=== PATIENT | male | born 1955 | race Caucasian/White ===

== ENCOUNTER 2022-08-13 11:38 | Outpatient (CLI) | payer MEDICARE | END 2022-08-13 11:39 | disposition home or self-care (01) | LOC: CSHWCC 11:38 | PROVIDERS: ATTEND Nurse Practitioner Family | DX: T81.89XD Other complications of procedures, not elsewhere classified, subsequent encounter (principal); R60.0 Localized edema | CPT/HCPCS: 17250; 29581 ==

== ENCOUNTER 2022-08-27 15:30 | Outpatient (CLI) | payer MEDICARE | END 2022-08-27 15:31 | disposition home or self-care (01) | LOC: CSHWCC 15:30 | PROVIDERS: ATTEND Nurse Practitioner Family | DX: T81.89XD Other complications of procedures, not elsewhere classified, subsequent encounter (principal); R60.0 Localized edema | CPT/HCPCS: 29581; 99213; G0463 ==

== ENCOUNTER 2022-09-10 15:13 | Outpatient (CLI) | payer MEDICARE | END 2022-09-10 15:14 | disposition home or self-care (01) | LOC: CSHWCC 15:13 | PROVIDERS: ATTEND Nurse Practitioner Family | DX: T81.89XD Other complications of procedures, not elsewhere classified, subsequent encounter (principal); R60.0 Localized edema | CPT/HCPCS: 17250; 29581 ==

== ENCOUNTER 2022-09-24 14:34 | Outpatient (CLI) | payer MEDICARE | END 2022-09-24 14:35 | disposition home or self-care (01) | LOC: CSHWCC 14:34 | PROVIDERS: ATTEND Nurse Practitioner Family | DX: T81.89XD Other complications of procedures, not elsewhere classified, subsequent encounter (principal); R60.0 Localized edema | CPT/HCPCS: 17250; 29581 ==

== ENCOUNTER 2022-10-15 10:18 | Outpatient (CLI) | payer MEDICARE | END 2022-10-15 10:19 | disposition home or self-care (01) | LOC: CSHWCC 10:18 | PROVIDERS: ATTEND Nurse Practitioner Family | DX: T81.89XD Other complications of procedures, not elsewhere classified, subsequent encounter (principal); R60.0 Localized edema | CPT/HCPCS: 97139; G0463; 99214 ==

== ENCOUNTER 2022-10-29 13:03 | Outpatient (CLI) | payer MEDICARE | END 2022-10-29 13:04 | disposition home or self-care (01) | LOC: CSHWCC 13:03 | PROVIDERS: ATTEND Nurse Practitioner Family | DX: R60.0 Localized edema (principal); T81.89XD Other complications of procedures, not elsewhere classified, subsequent encounter | CPT/HCPCS: 29581 ==

== ENCOUNTER 2022-11-12 14:45 | Outpatient (CLI) | payer MEDICARE | END 2022-11-12 14:46 | disposition home or self-care (01) | LOC: CSHWCC 14:45 | PROVIDERS: ATTEND Nurse Practitioner Family | DX: T81.89XD Other complications of procedures, not elsewhere classified, subsequent encounter (principal); R60.0 Localized edema | CPT/HCPCS: 29581 ==

== ENCOUNTER 2022-12-17 13:03 | Outpatient (CLI) | payer MEDICARE | END 2022-12-17 13:04 | disposition home or self-care (01) | LOC: CSHWCC 13:03 | PROVIDERS: ATTEND Preventive Medicine Undersea and Hyperbaric Medicine | DX: T81.89XD Other complications of procedures, not elsewhere classified, subsequent encounter (principal); R60.0 Localized edema | CPT/HCPCS: 11042; G0463; 99213 ==

== ENCOUNTER 2023-01-07 15:27 | Outpatient (CLI) | payer MEDICARE ==
[~2023-01-07 15:27] MED LIST: Iopamidol 300 61% 100 ML VIAL FS ONE
== END 2023-01-07 15:28 | disposition home or self-care (01) ==
LOC: CSHCT 15:27
PROVIDERS: ATTEND Otolaryngology
DX: C44.42 Squamous cell carcinoma of skin of scalp and neck (principal); Z92.3 Personal history of irradiation; R22.1 Localized swelling, mass and lump, neck; C79.89 Secondary malignant neoplasm of other specified sites; C78.00 Secondary malignant neoplasm of unspecified lung; C78.89 Secondary malignant neoplasm of other digestive organs
CPT/HCPCS: 70491; 71260; 82565

== ENCOUNTER 2023-03-26 09:21 | Outpatient (CLI) | payer MEDICARE | END 2023-03-26 09:22 | disposition home or self-care (01) | LOC: CSHWCC 09:21 | PROVIDERS: ATTEND Physician Assistant | DX: L89.812 Pressure ulcer of head, stage 2 (principal); L98.495 Non-pressure chronic ulcer of skin of other sites with muscle involvement without evidence of necrosis; C44.42 Squamous cell carcinoma of skin of scalp and neck; Z93.0 Tracheostomy status | CPT/HCPCS: 97597; 97598; G0463; 99204 ==

== ENCOUNTER 2023-04-17 15:22 | Outpatient (CLI) | payer MEDICARE | END 2023-04-17 15:23 | disposition home or self-care (01) | LOC: CSHWCC 15:22 | PROVIDERS: ATTEND Nurse Practitioner Family | DX: L89.812 Pressure ulcer of head, stage 2 (principal); L98.495 Non-pressure chronic ulcer of skin of other sites with muscle involvement without evidence of necrosis; C44.42 Squamous cell carcinoma of skin of scalp and neck; Z93.0 Tracheostomy status | CPT/HCPCS: 99214; G0463 ==

== ENCOUNTER 2023-04-30 15:21 | Outpatient (CLI) | payer MEDICARE | END 2023-04-30 15:22 | disposition home or self-care (01) | LOC: CSHWCC 15:21 | PROVIDERS: ATTEND Nurse Practitioner Family | DX: L98.495 Non-pressure chronic ulcer of skin of other sites with muscle involvement without evidence of necrosis (principal); C44.42 Squamous cell carcinoma of skin of scalp and neck; H02.846 Edema of left eye, unspecified eyelid; Z93.0 Tracheostomy status | CPT/HCPCS: 99213; G0463 ==